=== PATIENT | female | born 2000 | race Caucasian/White ===

== ENCOUNTER 2022-02-12 17:15 | Emergency (ER) | payer OTHER ==
[2022-02-12] MEDS ORDERED: BENZ5GEL13 (17:58)
[2022-02-12] MEDS ORDERED: METH-1164 (17:58)
[2022-02-12] MEDS ORDERED: CLIN1GEL3 (17:58)
[2022-02-12] MEDS ORDERED: MEDR4PAK (17:58)
[2022-02-12 19:06] LABS: HEMATOCRIT 40.7 % (36.0-47.0); HEMOGLOBIN 13.3 g/dl (12.0-15.5); MEAN CORPUSCULAR HEMOGLOBIN 28.5 pg (27.0-33.0); MEAN CORPUSCULAR HGB CONC 32.7 g/dl (32.0-36.5); MEAN CORPUSCULAR VOLUME 87.2 fl (80.0-96.0); PLATELET COUNT, AUTOMATED 214 10^3/uL (150-450); RED BLOOD COUNT 4.67 10^6/uL (4.00-5.40); WHITE BLOOD COUNT 5.3 10^3/uL (4.0-10.0)
[2022-02-12 19:45] LABS: ALBUMIN 3.5 GM/DL (3.2-5.2); ALT/SGPT 18 U/L (12-78); BILIRUBIN,DIRECT 0.2 MG/DL (0.0-0.2); BILIRUBIN,TOTAL 0.3 MG/DL (0.2-1.0); BLOOD UREA NITROGEN 11 MG/DL (7-18); CALCIUM LEVEL 8.7 MG/DL (8.5-10.1); CARBON DIOXIDE LEVEL 26 MEQ/L (21-32); CHLORIDE LEVEL 107 MEQ/L (98-107); ETHYL ALCOHOL (ETHANOL) < 0.003 % (0.000-0.010); GLUCOSE, FASTING 99 MG/DL (70-100); POTASSIUM SERUM 3.9 MEQ/L (3.5-5.1); SALICYLATE LEVEL < 1.7 MG/DL (5.0-30.0); SODIUM LEVEL 140 MEQ/L (136-145); TOTAL PROTEIN 7.1 GM/DL (6.4-8.2)
[2022-02-12 19:50] LABS: HCG, SERUM QUALITATIVE NEGATIVE (NEGATIVE)
[2022-02-12 21:28] LABS: ACETAMINOPHEN LEVEL < 2.0 UG/ML (0.0-30.0)
[2022-02-12 22:44] LABS: AMPHETAMINES LEVEL URINE NEGATIVE (NEGATIVE); BARBITURATES URINE NEGATIVE (NEGATIVE); BENZODIAZEPINES URINE NEGATIVE (NEGATIVE); CANNABINOIDS URINE NEGATIVE (NEGATIVE); COCAINE METABOLITE URINE NEGATIVE (NEGATIVE); METHADONE URINE NEGATIVE (NEGATIVE); OPIATES URINE NEGATIVE (NEGATIVE); PHENCYCLIDINE URINE NEGATIVE (NEGATIVE)
[2022-02-13 00:25] LABS: RSV AMPLIFICATION NEGATIVE (NEGATIVE)
[2022-02-13] MEDS ORDERED: AMNESTEEM PO (06:03)
[2022-02-13] MEDS ORDERED: LORY1TAB2 PO (06:04)
[2022-02-13] MEDS ORDERED: HOME MED LIST COMPLETE! XX SCH (06:05)
[2022-02-14] MEDS ORDERED: IBUPROFEN 800 MG TAB PO ONE (18:20)
[2022-02-14 19:24] VITALS: BP 138/87
== END 2022-02-14 19:09 ==
LOC: M ED 17:15
DX: R45.851 Suicidal ideations (principal); Z79.899 Other long term (current) drug therapy; Z79.3 Long term (current) use of hormonal contraceptives

== ENCOUNTER → 2022-11-10 | Outpatient (CLI) | payer OTHER ==
[~2022-11-10] MED LIST: AMNESTEEM PO; BENZ5GEL13; CLIN1GEL3; LORY1TAB2 PO; MEDR4PAK; METH-1164
== END ==
LOC: M PLAIMG 12:34
PROVIDERS: ATTEND Physician Assistant
DX: M70.62 Trochanteric bursitis, left hip (principal)

== ENCOUNTER → 2022-11-17 | Outpatient (CLI) | payer OTHER ==
[~2022-11-17] MED LIST changes: +ISOVUE-300 61% 100ML VIAL ONE; +LIDOCAINE 1% MDV 20ML VIAL ONE; +PROHANCE 279.3MG/ML 5ML VIAL ONE
== END ==
LOC: M PLAIMG 12:54
PROVIDERS: ATTEND Physician Assistant
DX: M70.61 Trochanteric bursitis, right hip (principal)
CPT/HCPCS: 27093; 73723; 76000; A9576; Q9967

== ENCOUNTER → 2022-12-10 | Outpatient (REF) ==
[~2022-12-10] MED LIST changes: -ISOVUE-300 61% 100ML VIAL ONE; -LIDOCAINE 1% MDV 20ML VIAL ONE; -PROHANCE 279.3MG/ML 5ML VIAL ONE
== END ==
LOC: M PLAIMG 11:07
PROVIDERS: ATTEND Internal Medicine
DX: R06.02 Shortness of breath (principal)

== ENCOUNTER 2023-01-29 22:01 | Inpatient (IN) | payer OTHER ==
[~2023-01-29] VITALS: Ht 172.7 cm; Wt 76.8 kg
[2023-01-29] MEDS ORDERED: HYDR-3363 PO (22:09)
[2023-01-29] MEDS ORDERED: TIZA10TA PO (22:09)
[2023-01-29] MEDS ORDERED: QUET1TAB17 PO (22:09)
[2023-01-29] MEDS ORDERED: SERT50TA29 PO (22:11)
[2023-01-29] MEDS ORDERED: NS 1,000 ML IV ONE (22:15)
[2023-01-29 22:43] LABS: ABG BASE EXCESS -4.7 (-2.0-2.0); ABG HCO3 19.6 MMOL/L (22.0-26.0); ABG O2 SATURATION 97.2 % (95.0-99.0); ABG PARTIAL PRESSURE CO2 34.2 mmHg (35.0-45.0); ABG PARTIAL PRESSURE O2 92.9 mmHg (75.0-100.0); ABG STANDARD HCO3 20.6 MMOL/L. (22.0-26.0); ABG TOTAL CO2 20.6 MMOL/L (22.0-29.0); ABG pH (ARTERIAL) 7.376 UNITS (7.350-7.450)
[2023-01-29 22:51] LABS: BASO % 0.3 % (0.0-1.0); EOS % 0.5 % (0.0-3.0); HEMATOCRIT 43.5 % (36.0-47.0); HEMOGLOBIN 14.7 g/dl (12.0-15.5); LYMPH # 1.8 10^3/uL (1.5-5.0); LYMPH % 28.3 % (24.0-44.0); MEAN CORPUSCULAR HEMOGLOBIN 28.1 pg (27.0-33.0); MEAN CORPUSCULAR HGB CONC 33.8 g/dl (32.0-36.5); MEAN CORPUSCULAR VOLUME 83.2 fl (80.0-96.0); MONO # 0.6 10^3/uL (0.0-0.8); MONO % 10.3 % (2.0-8.0); NEUTROPHILS # 3.8 10^3/uL (1.5-8.5); NEUTROPHILS % 60.4 % (36.0-66.0); PLATELET COUNT, AUTOMATED 227 10^3/uL (150-450); RED BLOOD COUNT 5.23 10^6/uL (4.00-5.40); WHITE BLOOD COUNT 6.2 10^3/uL (4.0-10.0)
[2023-01-29 23:01] LABS: ETHYL ALCOHOL (ETHANOL) < 0.003 % (0.000-0.010)
[2023-01-29 23:03] LABS: SALICYLATE LEVEL 4.1 MG/DL (<30)
[2023-01-29 23:04] LABS: ACETAMINOPHEN LEVEL < 2.0 UG/ML (10.0-20.0); ALBUMIN 4.3 G/DL (3.2-5.2); ALKALINE PHOSPHATASE 87 U/L (46-116); ALT/SGPT 17 U/L (7.0-40); AST/SGOT 13 U/L (<34); BILIRUBIN,DIRECT 0.2 MG/DL (<0.4); BILIRUBIN,TOTAL 0.5 MG/DL (0.3-1.2); BLOOD UREA NITROGEN 14 MG/DL (9-23); CALCIUM LEVEL 8.9 MG/DL (8.5-10.1); CARBON DIOXIDE LEVEL 24 MMOL/L (20-31); CHLORIDE LEVEL 106 MMOL/L (98-107); CPK CREATINE PHOSPHOKINASE 95 U/L (34-145); CREATININE FOR GFR 0.85 MG/DL (0.55-1.30); GLUCOSE, FASTING 92 MG/DL (60-100); POTASSIUM SERUM 3.5 MMOL/L (3.5-5.1); SODIUM LEVEL 140 MMOL/L (136-145); TOTAL PROTEIN 7.2 G/DL (5.7-8.2)
[2023-01-29 23:06] LABS: THYROID STIMULATING HORMONE 1.854 uIU/ML (0.48-4.17)
[2023-01-29 23:10] LABS: HCG, SERUM QUALITATIVE NEGATIVE (NEGATIVE)
[2023-01-30 00:06] LABS: AMPHETAMINES LEVEL URINE NEGATIVE (NEGATIVE); BARBITURATES URINE NEGATIVE (NEGATIVE); BENZODIAZEPINES URINE NEGATIVE (NEGATIVE); CANNABINOIDS URINE NEGATIVE (NEGATIVE); PHENCYCLIDINE URINE NEGATIVE (NEGATIVE)
[2023-01-30 00:07] LABS: COCAINE METABOLITE URINE NEGATIVE (NEGATIVE); METHADONE URINE NEGATIVE (NEGATIVE); OPIATES URINE NEGATIVE (NEGATIVE)
[2023-01-30] MEDS ORDERED: OMEP-173 PO (02:10)
[2023-01-30] MEDS ORDERED: HOME MED LIST COMPLETE! XX SCH (02:10)
[2023-01-30] MEDS ORDERED: MAALOX 30 ML SUSP *UDC PO PRN (07:55)
[2023-01-30] MEDS ORDERED: QUEtiapine FUMARATE 25 MG TAB PO PRN (07:55)
[2023-01-30] MEDS ORDERED: IBUPROFEN 400MG TAB PO PRN (07:55)
[2023-01-30] MEDS ORDERED: diphenhydrAMINE 25MG CAP PO PRN (07:55)
[2023-01-30] MEDS ORDERED: MOM 30ML SUSPENSION UDC PO PRN (07:55)
[2023-01-30] MEDS: OMEPRAZOLE 20MG CAP PO SCH (09:00)
[2023-01-30] MEDS: NICOTINE 14 MG/24 HR TRANSDERMAL TD SCH (09:00)
[2023-01-30] MEDS ORDERED: MECLIZINE 25 MG TABLET PO STA (10:39)
[2023-01-30] MEDS ORDERED: ONDANSETRON 4MG ORAL DISINTEGRATING TAB PO STA (10:39)
[2023-01-30 13:47] VITALS: BP 138/76; TEMP 97.9; O2SAT 96
[2023-01-31 06:32] VITALS: BP 133/73; TEMP 97.8; O2SAT 98
[2023-01-31] MEDS: NICOTINE 14 MG/24 HR TRANSDERMAL TD SCH (09:00)
[2023-01-31] MEDS ORDERED: ONDANSETRON 4MG TAB PO PRN (09:05)
[2023-01-31] MEDS: OMEPRAZOLE 20MG CAP PO SCH (09:35)
[2023-01-31 14:00] VITALS: BP 141/67; TEMP 98.3; O2SAT 97
[2023-01-31] MEDS: ACETAMINOPHEN TAB 650MG DOSE (2X325MG) PO PRN (16:06)
[2023-01-31 21:06] VITALS: BP 134/70; TEMP 98.1; O2SAT 97
[2023-01-31] MEDS: traZODone 50 MG TAB PO PRN (21:27)
[2023-02-01 05:56] VITALS: BP 144/70; TEMP 98.7; O2SAT 97
[2023-02-01 08:07] LABS: CPK CREATINE PHOSPHOKINASE 585 U/L (34-145)
[2023-02-01] MEDS: OMEPRAZOLE 20MG CAP PO SCH (09:05)
[2023-02-01] MEDS: ONDANSETRON 4MG ORAL DISINTEGRATING TAB PO PRN ×2 (09:06→17:32)
[2023-02-01 10:27] LABS: ALBUMIN 4.1 G/DL (3.2-5.2); ALKALINE PHOSPHATASE 81 U/L (46-116); ALT/SGPT 24 U/L (7.0-40); AST/SGOT 47 U/L (<34); BILIRUBIN,TOTAL 0.9 MG/DL (0.3-1.2); BLOOD UREA NITROGEN 12 MG/DL (9-23); CALCIUM LEVEL 9.1 MG/DL (8.5-10.1); CARBON DIOXIDE LEVEL 26 MMOL/L (20-31); CHLORIDE LEVEL 106 MMOL/L (98-107); CREATININE FOR GFR 0.92 MG/DL (0.55-1.30); GLUCOSE, FASTING 82 MG/DL (60-100); SODIUM LEVEL 139 MMOL/L (136-145); TOTAL PROTEIN 6.9 G/DL (5.7-8.2)
[2023-02-01] MEDS ORDERED: NS 1,000 ML IV ONE (11:00)
[2023-02-01 17:46] VITALS: BP 144/85; TEMP 97.1
[2023-02-01] MEDS: traZODone 50 MG TAB PO PRN (20:25)
[2023-02-01 21:00] VITALS: BP 118/74; TEMP 98.9; O2SAT 97
[2023-02-01] MEDS: ACETAMINOPHEN TAB 650MG DOSE (2X325MG) PO PRN (21:14)
[2023-02-02 05:56] VITALS: BP 122/66; TEMP 98.3; O2SAT 98
[2023-02-02] MEDS: OMEPRAZOLE 20MG CAP PO SCH (09:01)
[2023-02-02] MEDS: ONDANSETRON 4MG ORAL DISINTEGRATING TAB PO PRN (09:02)
[2023-02-02] MEDS: ESCITALOPRAM OXALATE 5MG TABLET (LEXAPRO) PO SCH (14:10)
[2023-02-02] MEDS: PANTOPRAZOLE 40MG TAB (PROTONIX) PO SCH (14:45)
[2023-02-02 14:50] LABS: HEMATOCRIT 41.5 % (36.0-47.0); HEMOGLOBIN 13.8 g/dl (12.0-15.5); MEAN CORPUSCULAR HEMOGLOBIN 28.1 pg (27.0-33.0); MEAN CORPUSCULAR HGB CONC 33.3 g/dl (32.0-36.5); MEAN CORPUSCULAR VOLUME 84.5 fl (80.0-96.0); PLATELET COUNT, AUTOMATED 153 10^3/uL (150-450); RED BLOOD COUNT 4.91 10^6/uL (4.00-5.40); WHITE BLOOD COUNT 5.3 10^3/uL (4.0-10.0)
[2023-02-02 15:14] LABS: ALBUMIN 3.6 G/DL (3.2-5.2); ALKALINE PHOSPHATASE 76 U/L (46-116); ALT/SGPT 22 U/L (7.0-40); AST/SGOT 34 U/L (<34); BILIRUBIN,TOTAL 0.8 MG/DL (0.3-1.2); BLOOD UREA NITROGEN 11 MG/DL (9-23); CALCIUM LEVEL 8.5 MG/DL (8.5-10.1); CARBON DIOXIDE LEVEL 27 MMOL/L (20-31); CHLORIDE LEVEL 105 MMOL/L (98-107); GLUCOSE, FASTING 88 MG/DL (60-100); POTASSIUM SERUM 3.8 MMOL/L (3.5-5.1); SODIUM LEVEL 137 MMOL/L (136-145); TOTAL PROTEIN 6.3 G/DL (5.7-8.2)
[2023-02-02] MEDS: SUCRALFATE SUSP 1GM/10ML UD PO SCH ×2 (18:01→20:16)
[2023-02-02 18:11] VITALS: BP 125/71; TEMP 98.1
[2023-02-02] MEDS: traZODone 50 MG TAB PO PRN (20:16)
[2023-02-02] MEDS: RAMELTEON 8 MG TAB (ROZEREM) PO SCH (20:16)
[2023-02-03 07:04] VITALS: BP 134/62; TEMP 98.4; O2SAT 99
[2023-02-03] MEDS: SUCRALFATE SUSP 1GM/10ML UD PO SCH ×4 (07:47→20:57)
[2023-02-03] MEDS: ESCITALOPRAM OXALATE 5MG TABLET (LEXAPRO) PO SCH (09:01)
[2023-02-03] MEDS: PANTOPRAZOLE 40MG TAB (PROTONIX) PO SCH (09:01)
[2023-02-03 16:51] VITALS: BP 137/63; TEMP 97.3; O2SAT 97
[2023-02-03] MEDS: traZODone 50 MG TAB PO PRN (20:58)
[2023-02-03] MEDS: RAMELTEON 8 MG TAB (ROZEREM) PO SCH (20:58)
[2023-02-04 06:39] VITALS: BP 122/57; TEMP 98.4; O2SAT 98
[2023-02-04] MEDS: SUCRALFATE SUSP 1GM/10ML UD PO SCH ×4 (06:45→20:55)
[2023-02-04] MEDS: ESCITALOPRAM OXALATE 5MG TABLET (LEXAPRO) PO SCH (09:11)
[2023-02-04] MEDS: PANTOPRAZOLE 40MG TAB (PROTONIX) PO SCH (09:11)
[2023-02-04 18:00] VITALS: BP 121/59; TEMP 98.5; O2SAT 97
[2023-02-04] MEDS: traZODone 50 MG TAB PO PRN (20:56)
[2023-02-04] MEDS: RAMELTEON 8 MG TAB (ROZEREM) PO SCH (20:56)
[2023-02-05 06:22] VITALS: BP 123/66; TEMP 98.1; O2SAT 99
[2023-02-05] MEDS: SUCRALFATE SUSP 1GM/10ML UD PO SCH ×4 (06:33→20:07)
[2023-02-05] MEDS: ESCITALOPRAM OXALATE 10 MG TAB (LEXAPRO) PO SCH (09:46)
[2023-02-05] MEDS: PANTOPRAZOLE 40MG TAB (PROTONIX) PO SCH (09:46)
[2023-02-05 18:00] VITALS: BP 142/71; TEMP 98
[2023-02-05] MEDS: traZODone 50 MG TAB PO PRN (20:06)
[2023-02-05] MEDS: RAMELTEON 8 MG TAB (ROZEREM) PO SCH (20:07)
[2023-02-06] MEDS: SUCRALFATE SUSP 1GM/10ML UD PO SCH ×4 (06:45→20:13)
[2023-02-06 06:58] VITALS: BP 113/64; TEMP 98.9; O2SAT 98
[2023-02-06] MEDS: ESCITALOPRAM OXALATE 10 MG TAB (LEXAPRO) PO SCH (08:49)
[2023-02-06] MEDS: PANTOPRAZOLE 40MG TAB (PROTONIX) PO SCH (08:49)
[2023-02-06 18:00] VITALS: BP 135/78; TEMP 97.6
[2023-02-06] MEDS: RAMELTEON 8 MG TAB (ROZEREM) PO SCH (20:13)
[2023-02-06] MEDS: traZODone 50 MG TAB PO PRN (20:13)
[2023-02-07] MEDS: SUCRALFATE SUSP 1GM/10ML UD PO SCH ×4 (06:30→20:09)
[2023-02-07 06:39] VITALS: BP 121/59; TEMP 98.8; O2SAT 99
[2023-02-07] MEDS: PANTOPRAZOLE 40MG TAB (PROTONIX) PO SCH (08:06)
[2023-02-07] MEDS: ESCITALOPRAM OXALATE 10 MG TAB (LEXAPRO) PO SCH (08:06)
[2023-02-07 15:15] VITALS: BP 120/70; TEMP 98.3; O2SAT 99
[2023-02-07] MEDS: RAMELTEON 8 MG TAB (ROZEREM) PO SCH (20:09)
[2023-02-07] MEDS: traZODone 50 MG TAB PO PRN (20:09)
[2023-02-08] MEDS: SUCRALFATE SUSP 1GM/10ML UD PO SCH ×2 (06:42→12:10)
[2023-02-08 06:54] VITALS: BP 111/52; TEMP 98.3; O2SAT 99
[2023-02-08] MEDS: ESCITALOPRAM OXALATE 10 MG TAB (LEXAPRO) PO SCH (08:12)
[2023-02-08] MEDS: PANTOPRAZOLE 40MG TAB (PROTONIX) PO SCH (08:12)
[2023-02-08] MEDS ORDERED: LEXA1TAB PO (10:18)
[2023-02-08] MEDS ORDERED: RAME8TAB2 PO (10:18)
[2023-02-08] MEDS ORDERED: SUCR1ORA PO (10:19)
== END 2023-02-08 13:12 | disposition home or self-care (01) | DRG 885 ==
LOC: EDBD 22:01 → EDUNIT# 22:01 → M ED 22:01 → M ED INP 01-30 07:55 → M PSY 01-30 13:50
PROVIDERS: ADMIT Student in an Organized Health Care Education/Training Program; ATTEND Student in an Organized Health Care Education/Training Program
DX: F33.1 Major depressive disorder, recurrent, moderate (principal); M62.82 Rhabdomyolysis; F43.10 Post-traumatic stress disorder, unspecified; E86.0 Dehydration; R11.2 Nausea with vomiting, unspecified; T43.222A Poisoning by selective serotonin reuptake inhibitors, intentional self-harm, initial encounter; G47.00 Insomnia, unspecified; Z63.5 Disruption of family by separation and divorce; Z91.51 Personal history of suicidal behavior; Z91.52 Personal history of nonsuicidal self-harm; Z79.899 Other long term (current) drug therapy

== ENCOUNTER 2023-02-23 23:05 | Inpatient (IN) | payer OTHER ==
[~2023-02-23] VITALS: Ht 172.7 cm; Wt 69.0 kg
[~2023-02-23 23:05] MED LIST changes: +HYDR-3363 PO; +LEXA1TAB PO; +OMEP-173 PO; +QUET1TAB17 PO; +RAME8TAB2 PO; +SERT50TA29 PO; +SUCR1ORA PO; +TIZA10TA PO
[2023-02-23 23:42] LABS: HEMATOCRIT 40.2 % (36.0-47.0); HEMOGLOBIN 13.1 g/dl (12.0-15.5); MEAN CORPUSCULAR HEMOGLOBIN 27.6 pg (27.0-33.0); MEAN CORPUSCULAR HGB CONC 32.6 g/dl (32.0-36.5); MEAN CORPUSCULAR VOLUME 84.8 fl (80.0-96.0); PLATELET COUNT, AUTOMATED 203 10^3/uL (150-450); RED BLOOD COUNT 4.74 10^6/uL (4.00-5.40); WHITE BLOOD COUNT 5.9 10^3/uL (4.0-10.0)
[2023-02-24] MEDS ORDERED: NORG1TAB40 PO (00:46)
[2023-02-24] MEDS ORDERED: ACNE1GEL2 EXT (00:46)
[2023-02-24] MEDS ORDERED: ROZE8TAB16 PO (00:46)
[2023-02-24] MEDS ORDERED: SUCR1SS PO (00:46)
[2023-02-24] MEDS ORDERED: ONDA-195 PO (00:46)
[2023-02-24] MEDS ORDERED: LEXA1TAB PO (00:46)
[2023-02-24] MEDS ORDERED: HOME MED LIST COMPLETE! XX SCH (00:50)
[2023-02-24 01:15] LABS: ETHYL ALCOHOL (ETHANOL) < 0.003 % (0.000-0.010)
[2023-02-24 01:17] LABS: ACETAMINOPHEN LEVEL < 2.0 UG/ML (10.0-20.0); ALBUMIN 3.9 G/DL (3.2-5.2); ALKALINE PHOSPHATASE 73 U/L (46-116); ALT/SGPT 20 U/L (7.0-40); AST/SGOT 15 U/L (<34); BILIRUBIN,DIRECT 0.1 MG/DL (<0.4); BILIRUBIN,TOTAL 0.4 MG/DL (0.3-1.2); BLOOD UREA NITROGEN 10 MG/DL (9-23); CALCIUM LEVEL 8.4 MG/DL (8.5-10.1); CARBON DIOXIDE LEVEL 26 MMOL/L (20-31); CHLORIDE LEVEL 108 MMOL/L (98-107); CREATININE FOR GFR 0.77 MG/DL (0.55-1.30); GLUCOSE, FASTING 92 MG/DL (60-100); POTASSIUM SERUM 4.3 MMOL/L (3.5-5.1); SALICYLATE LEVEL < 3.0 MG/DL (<30); SODIUM LEVEL 140 MMOL/L (136-145); TOTAL PROTEIN 6.7 G/DL (5.7-8.2)
[2023-02-24 01:20] LABS: THYROID STIMULATING HORMONE 1.736 uIU/ML (0.48-4.17)
[2023-02-24 06:02] LABS: AMPHETAMINES LEVEL URINE NEGATIVE (NEGATIVE); BARBITURATES URINE NEGATIVE (NEGATIVE); BENZODIAZEPINES URINE NEGATIVE (NEGATIVE); CANNABINOIDS URINE NEGATIVE (NEGATIVE); COCAINE METABOLITE URINE NEGATIVE (NEGATIVE); METHADONE URINE NEGATIVE (NEGATIVE); OPIATES URINE NEGATIVE (NEGATIVE); PHENCYCLIDINE URINE NEGATIVE (NEGATIVE)
[2023-02-24] MEDS ORDERED: SUCRALFATE SUSP 1GM/10ML UD PO PRN (07:40)
[2023-02-24] MEDS ORDERED: RAMELTEON 8 MG TAB (ROZEREM) PO PRN (07:40)
[2023-02-24] MEDS ORDERED: ONDANSETRON 4MG TAB PO PRN (07:40)
[2023-02-24] MEDS: NICOTINE 21MG/24HR 1 EA TRANSDERMAL TD SCH (09:00)
[2023-02-24] MEDS ORDERED: ESCITALOPRAM OXALATE 10 MG TAB (LEXAPRO) PO SCH (09:00)
[2023-02-24] MEDS ORDERED: MOM 30ML SUSPENSION UDC PO PRN (10:20)
[2023-02-24] MEDS ORDERED: ACETAMINOPHEN TAB 650MG DOSE (2X325MG) PO PRN (10:20)
[2023-02-24] MEDS ORDERED: IBUPROFEN 400MG TAB PO PRN (10:20)
[2023-02-24] MEDS ORDERED: MAALOX 30 ML SUSP *UDC PO PRN (10:20)
[2023-02-24] MEDS ORDERED: diphenhydrAMINE 25MG CAP PO PRN (10:20)
[2023-02-24] MEDS ORDERED: MED REC IN PROGRESS XX SCH (10:55)
[2023-02-24 11:54] VITALS: BP 125/59; TEMP 98; O2SAT 100
[2023-02-24] MEDS: CEPACOL LOZENGE PO PRN ×2 (15:23→19:04)
[2023-02-24] MEDS ORDERED: NORGESTIMATE PO SCH ×2 (21:00)
[2023-02-24] MEDS ORDERED: ETHINYL ESTRADIOL PO SCH ×2 (21:00)
[2023-02-24] MEDS: traZODone 50 MG TAB PO PRN (23:02)
[2023-02-25 06:01] VITALS: BP 117/60; TEMP 97.4; O2SAT 97
[2023-02-25] MEDS: CEPACOL LOZENGE PO PRN (08:15)
[2023-02-25] MEDS: NICOTINE 21MG/24HR 1 EA TRANSDERMAL TD SCH (09:00)
[2023-02-25 17:30] VITALS: BP 111/51; TEMP 97.7; O2SAT 97
[2023-02-25] MEDS: traZODone 50 MG TAB PO PRN (21:13)
[2023-02-25] MEDS: CEPACOL LOZENGE MT PRN (21:13)
[2023-02-26 06:50] VITALS: BP 121/59; TEMP 98.1; O2SAT 99
[2023-02-26] MEDS: CEPACOL LOZENGE MT PRN ×2 (16:17→20:31)
[2023-02-26 16:19] VITALS: BP 131/77; TEMP 97; O2SAT 100
[2023-02-26] MEDS: traZODone 50 MG TAB PO PRN (20:31)
[2023-02-27 06:53] VITALS: BP 137/65; TEMP 97.7; O2SAT 98
[2023-02-27] MEDS ORDERED: traZODone 100 MG TAB PO PRN (11:25)
[2023-02-27 18:10] VITALS: BP 136/76; TEMP 98.5; O2SAT 100
[2023-02-28 06:56] VITALS: BP 128/62; TEMP 97.6; O2SAT 99
[2023-02-28] MEDS ORDERED: LEXA1TAB PO (09:55)
[2023-02-28] MEDS ORDERED: TRAZ-257 PO (09:57)
== END 2023-02-28 13:50 | disposition home or self-care (01) | DRG 885 ==
LOC: EDBD 23:05 → M ED 23:05 → M ED INP 02-24 10:20 → M PSY 02-24 11:54
PROVIDERS: ADMIT Student in an Organized Health Care Education/Training Program; ATTEND Student in an Organized Health Care Education/Training Program
DX: F33.1 Major depressive disorder, recurrent, moderate (principal); F43.10 Post-traumatic stress disorder, unspecified; J02.8 Acute pharyngitis due to other specified organisms; F10.10 Alcohol abuse, uncomplicated; Z20.822 Contact with and (suspected) exposure to COVID-19; Z91.51 Personal history of suicidal behavior; Z91.410 Personal history of adult physical and sexual abuse; Z79.899 Other long term (current) drug therapy

== ENCOUNTER 2023-05-04 14:04 | Inpatient (IN) | payer OTHER ==
[~2023-05-04] VITALS: Ht 172.7 cm; Wt 73.6 kg
[~2023-05-04 14:04] MED LIST changes: +ACNE1GEL2 EXT; +NORG1TAB40 PO; +ONDA-195 PO; +ROZE8TAB16 PO; +SUCR1SS PO; +TRAZ-257 PO
[2023-05-04 15:34] LABS: HEMATOCRIT 41.7 % (36.0-47.0); HEMOGLOBIN 13.5 g/dl (12.0-15.5); MEAN CORPUSCULAR HEMOGLOBIN 28.2 pg (27.0-33.0); MEAN CORPUSCULAR HGB CONC 32.4 g/dl (32.0-36.5); MEAN CORPUSCULAR VOLUME 87.1 fl (80.0-96.0); PLATELET COUNT, AUTOMATED 188 10^3/uL (150-450); RED BLOOD COUNT 4.79 10^6/uL (4.00-5.40); WHITE BLOOD COUNT 7.8 10^3/uL (4.0-10.0)
[2023-05-04] MEDS ORDERED: MED REC IN PROGRESS XX SCH (15:35)
[2023-05-04 15:52] LABS: AMPHETAMINES LEVEL URINE NEGATIVE (NEGATIVE); COCAINE METABOLITE URINE NEGATIVE (NEGATIVE); METHADONE URINE NEGATIVE (NEGATIVE); PHENCYCLIDINE URINE NEGATIVE (NEGATIVE)
[2023-05-04 15:53] LABS: BARBITURATES URINE NEGATIVE (NEGATIVE); BENZODIAZEPINES URINE NEGATIVE (NEGATIVE); CANNABINOIDS URINE NEGATIVE (NEGATIVE); OPIATES URINE NEGATIVE (NEGATIVE)
[2023-05-04 15:55] LABS: ETHYL ALCOHOL (ETHANOL) < 0.003 % (0.000-0.010)
[2023-05-04 15:56] LABS: ACETAMINOPHEN LEVEL < 2.0 UG/ML (10.0-20.0)
[2023-05-04 15:57] LABS: ALBUMIN 3.4 G/DL (3.2-5.2); ALKALINE PHOSPHATASE 54 U/L (46-116); ALT/SGPT 13 U/L (7.0-40); AST/SGOT < 8 U/L (<34); BILIRUBIN,DIRECT 0.1 MG/DL (<0.4); BILIRUBIN,TOTAL 0.4 MG/DL (0.3-1.2); BLOOD UREA NITROGEN 6 MG/DL (9-23); CALCIUM LEVEL 8.8 MG/DL (8.5-10.1); CARBON DIOXIDE LEVEL 27 MMOL/L (20-31); CHLORIDE LEVEL 105 MMOL/L (98-107); CREATININE FOR GFR 0.57 MG/DL (0.55-1.30); GLUCOSE, FASTING 77 MG/DL (60-100); SALICYLATE LEVEL < 3.0 MG/DL (<30); SODIUM LEVEL 138 MMOL/L (136-145); TOTAL PROTEIN 6.5 G/DL (5.7-8.2)
[2023-05-04 15:58] LABS: THYROID STIMULATING HORMONE 0.767 uIU/ML (0.48-4.17)
[2023-05-04] MEDS ORDERED: PRENTAB9 PO (17:16)
[2023-05-04] MEDS ORDERED: UNIS25TA3 PO (17:16)
[2023-05-04] MEDS ORDERED: AZEL15GE2 TOP (17:19)
[2023-05-04] MEDS ORDERED: PYRI50TA41 PO (17:19)
[2023-05-04] MEDS ORDERED: HOME MED LIST COMPLETE! XX SCH (17:25)
[2023-05-04] MEDS ORDERED: B-650TAB2 PO (17:46)
[2023-05-05] MEDS ORDERED: PYRIDOXINE 50 MG TAB PO SCH ×2 (09:00→21:00)
[2023-05-05] MEDS ORDERED: PRENATAL VITAMINS CHEWABLE TABLET PO SCH (09:00)
[2023-05-05] MEDS ORDERED: PILL CUTTER 1 EACH XX ONE (10:39)
[2023-05-05] MEDS ORDERED: PILL CUTTER 1 EACH XX PRN (12:00)
[2023-05-05] MEDS ORDERED: ACETAMINOPHEN TAB 650MG DOSE (2X325MG) PO PRN (13:20)
[2023-05-06 06:18] VITALS: BP 138/60; TEMP 98.7; O2SAT 99
[2023-05-06] MEDS: FLUoxetine 10 MG CAP PO SCH (11:18)
[2023-05-06] MEDS: PILL CUTTER 1 EACH XX PRN ×2 (12:12→16:01)
[2023-05-06] MEDS: PYRIDOXINE 50 MG TAB PO SCH ×3 (12:12→20:19)
[2023-05-06] MEDS: PRENATAL VITAMINS CHEWABLE TABLET PO SCH (12:14)
[2023-05-06 16:20] VITALS: BP 121/62; TEMP 98.9; O2SAT 99
[2023-05-07 06:33] VITALS: BP 129/63; TEMP 99.1; O2SAT 100
[2023-05-07] MEDS: FLUoxetine 10 MG CAP PO SCH (09:03)
[2023-05-07] MEDS: PILL CUTTER 1 EACH XX PRN ×2 (09:03→15:28)
[2023-05-07] MEDS: PRENATAL VITAMINS CHEWABLE TABLET PO SCH (09:03)
[2023-05-07] MEDS: PYRIDOXINE 50 MG TAB PO SCH ×3 (09:03→21:00)
[2023-05-07 16:18] VITALS: BP 127/60; TEMP 98.4; O2SAT 100
[2023-05-08 06:29] VITALS: BP 125/58; TEMP 99.7; O2SAT 100
[2023-05-08] MEDS: PRENATAL VITAMINS CHEWABLE TABLET PO SCH (08:21)
[2023-05-08] MEDS: PILL CUTTER 1 EACH XX PRN ×2 (08:21→15:19)
[2023-05-08] MEDS: PYRIDOXINE 50 MG TAB PO SCH ×3 (08:21→21:31)
[2023-05-08] MEDS: FLUoxetine 10 MG CAP PO SCH (08:22)
[2023-05-08 16:16] VITALS: BP 120/60; TEMP 97.8; O2SAT 100
[2023-05-09 06:31] VITALS: BP 117/58; TEMP 98.6; O2SAT 99
[2023-05-09] MEDS: FLUoxetine 10 MG CAP PO SCH (09:23)
[2023-05-09] MEDS: PRENATAL VITAMINS CHEWABLE TABLET PO SCH (09:23)
[2023-05-09] MEDS: PILL CUTTER 1 EACH XX PRN ×2 (09:23→15:56)
[2023-05-09] MEDS: PYRIDOXINE 50 MG TAB PO SCH ×3 (09:24→20:00)
[2023-05-09 19:04] VITALS: BP 143/89; TEMP 98
[2023-05-10 06:17] VITALS: BP 131/64; TEMP 98.4; O2SAT 99
[2023-05-10] MEDS: PILL CUTTER 1 EACH XX PRN (08:48)
[2023-05-10] MEDS: PRENATAL VITAMINS CHEWABLE TABLET PO SCH (08:48)
[2023-05-10] MEDS: PYRIDOXINE 50 MG TAB PO SCH ×3 (08:48→21:02)
[2023-05-10] MEDS: FLUoxetine 10 MG CAP PO SCH (08:49)
[2023-05-10 19:01] VITALS: BP 123/60; TEMP 97.3; O2SAT 99
[2023-05-11 05:53] VITALS: BP 103/51; TEMP 98.1; O2SAT 99
[2023-05-11] MEDS: PRENATAL VITAMINS CHEWABLE TABLET PO SCH (09:24)
[2023-05-11] MEDS: PYRIDOXINE 50 MG TAB PO SCH ×3 (09:24→20:23)
[2023-05-11] MEDS: FLUoxetine 10 MG CAP PO SCH (09:24)
[2023-05-11 11:34] VITALS: BP 103/51; TEMP 98.1; O2SAT 99
[2023-05-11 16:18] VITALS: BP 127/63; TEMP 98.2
[2023-05-12 06:40] VITALS: BP 120/56; TEMP 99.1; O2SAT 99
[2023-05-12] MEDS: PYRIDOXINE 50 MG TAB PO SCH (09:10)
[2023-05-12] MEDS: PRENATAL VITAMINS CHEWABLE TABLET PO SCH (09:10)
[2023-05-12] MEDS: FLUoxetine 10 MG CAP PO SCH (09:10)
[2023-05-12] MEDS ORDERED: FLUO10CA18 PO (10:59)
== END 2023-05-12 11:24 | disposition home or self-care (01) | DRG 832 ==
LOC: M ED 14:04 → M ED INP 05-05 13:17 → M PSY 05-05 15:14
PROVIDERS: ADMIT Student in an Organized Health Care Education/Training Program; ATTEND Student in an Organized Health Care Education/Training Program
DX: O99.341 Other mental disorders complicating pregnancy, first trimester (principal); R45.851 Suicidal ideations; F43.10 Post-traumatic stress disorder, unspecified; F60.3 Borderline personality disorder; Z91.410 Personal history of adult physical and sexual abuse; Z91.51 Personal history of suicidal behavior; Z3A.12 12 weeks gestation of pregnancy; F10.10 Alcohol abuse, uncomplicated; O99.311 Alcohol use complicating pregnancy, first trimester

== ENCOUNTER 2023-11-29 13:22 | Emergency (ER) | payer OTHER ==
[~2023-11-29] VITALS: Ht 172.7 cm; Wt 80.3 kg
[~2023-11-29 13:22] MED LIST changes: +AZEL15GE2 TOP; +B-650TAB2 PO; +FLUO10CA18 PO; +PRENTAB9 PO; +PYRI50TA41 PO; +UNIS25TA3 PO
[2023-11-29 15:13] LABS: BASO % 0.2 % (0.0-1.0); EOS # 0.1 10^3/uL (0.0-0.5); EOS % 0.8 % (0.0-3.0); HEMATOCRIT 43.9 % (36.0-47.0); HEMOGLOBIN 14.1 g/dl (12.0-15.5); LYMPH # 0.5 10^3/uL (1.5-5.0); LYMPH % 5.6 % (24.0-44.0); MEAN CORPUSCULAR HEMOGLOBIN 27.4 pg (27.0-33.0); MEAN CORPUSCULAR HGB CONC 32.1 g/dl (32.0-36.5); MEAN CORPUSCULAR VOLUME 85.2 fl (80.0-96.0); MONO # 0.4 10^3/uL (0.0-0.8); MONO % 5.1 % (2.0-8.0); NEUTROPHILS # 7.6 10^3/uL (1.5-8.5); PLATELET COUNT, AUTOMATED 187 10^3/uL (150-450); RED BLOOD COUNT 5.15 10^6/uL (4.00-5.40); WHITE BLOOD COUNT 8.7 10^3/uL (4.0-10.0)
[2023-11-29 15:17] VITALS: BP 129/67; TEMP 98.5; O2SAT 100
[2023-11-29 15:22] LABS: ERYTHROCYTE SEDIMENTATION RATE 26 mm/hr (0-20)
[2023-11-29 15:32] LABS: BLOOD UREA NITROGEN 10 MG/DL (9-23); CALCIUM LEVEL 8.5 MG/DL (8.5-10.1); CARBON DIOXIDE LEVEL 25 MMOL/L (20-31); CHLORIDE LEVEL 105 MMOL/L (98-107); CREATININE FOR GFR 0.85 MG/DL (0.55-1.30); GLOMERULAR FILTRATION RATE > 60.0 (>60); GLUCOSE, FASTING 87 MG/DL (60-100); HCG, SERUM QUALITATIVE NEGATIVE (NEGATIVE); POTASSIUM SERUM 3.9 MMOL/L (3.5-5.1); SODIUM LEVEL 137 MMOL/L (136-145)
== END 2023-11-29 18:49 | disposition left against medical advice (07) ==
LOC: M ED 13:22
DX: Z53.21 Procedure and treatment not carried out due to patient leaving prior to being seen by health care provider (principal)